=== PATIENT | female | born 1960 | race African-American/Black ===

== ENCOUNTER 2016-10-15 10:11 | Emergency (ER) | payer SELFPAY ==
[~2016-10-15] VITALS: Ht 165.1 cm; Wt 104.0 kg
[~2016-10-15 10:11] MED LIST: ALBU6.7H; CETI-101; FLONAS; HYDR25TA
[2016-10-15] MEDS ORDERED: IBUPROFEN 600MG TABLET PO ONE (14:00)
[2016-10-15 14:50] VITALS: BP 152/98
== END 2016-10-15 15:07 | disposition home or self-care (01) ==
LOC: ER 13:40
DX: S16.1XXA Strain of muscle, fascia and tendon at neck level, initial encounter (principal); V49.88XA Car occupant (driver) (passenger) injured in other specified transport accidents, initial encounter; Y93.89 Activity, other specified; Y92.89 Other specified places as the place of occurrence of the external cause; Y99.8 Other external cause status
CPT/HCPCS: 99283